=== PATIENT | female | born 1945 | race Two or more races ===

== ENCOUNTER → 2017-05-22 | Outpatient (CLI) | payer OTHER ==
[~2017-05-22] MED LIST: AMOX1TAB12 PO; CATAFLAM50 MG PO; INTESTINEX1 CAP PO; LODINE XL500 MG PO; LOSARTAN POTASS50 MG; NAPR500T14 PO; ORPH100T PO; PRINIVIL10 MG; PROTONIX20 MG PO
== END | disposition home or self-care (01) ==
LOC: TOM 09:05
DX: R10.2 Pelvic and perineal pain (principal)

== ENCOUNTER 2017-06-26 13:36 | Outpatient (CLI) | payer OTHER | END 2017-06-26 13:41 | disposition home or self-care (01) | LOC: MAMO-SONO 13:36 | DX: Z12.31 Encounter for screening mammogram for malignant neoplasm of breast (principal); Z87.898 Personal history of other specified conditions; N64.4 Mastodynia ==

== ENCOUNTER 2017-07-25 10:37 | Outpatient (CLI) | payer OTHER | END 2017-07-25 15:50 | disposition home or self-care (01) | LOC: MRI 10:37 | DX: M25.562 Pain in left knee (principal) | CPT/HCPCS: 73721 ==

== ENCOUNTER 2017-08-13 19:25 | Emergency (ER) | payer OTHER ==
[~2017-08-13] VITALS: Ht 170.2 cm; Wt 113.4 kg
[2017-08-13] MEDS ORDERED: SYNTHROID75 MCG (19:53)
[2017-08-13] MEDS ORDERED: IBUPROFEN800 MG PO (20:21)
== END 2017-08-13 21:04 | disposition home or self-care (01) ==
LOC: ER 19:25
DX: M25.512 Pain in left shoulder (principal)

== ENCOUNTER 2017-11-06 12:30 | Inpatient (IN) | payer OTHER ==
[~2017-11-06] VITALS: Ht 170.2 cm; Wt 113.4 kg
[~2017-11-06 12:30] MED LIST changes: +IBUPROFEN800 MG PO; +SYNTHROID75 MCG
[2017-11-14] MEDS ORDERED: SYNTHROID75 MCG PO (09:47)
[2017-11-14] MEDS ORDERED: LOSARTAN POTASS50 MG PO (09:47)
[2017-11-15] MEDS ORDERED: DUI500 PO (15:27)
[2017-11-15] MEDS ORDERED: PERCOCET 5-3251 EACH PO (15:27)
[2017-11-15] MEDS ORDERED: ELIQUIS2.5 MG PO (15:27)
== END 2017-11-15 16:38 | disposition home or self-care (01) | DRG 470 ==
LOC: O/R 11-13 04:35 → SURG 11-13 04:35 → SURH 11-13 09:45 → SURG 11-13 13:38
PROVIDERS: Orthopaedic Surgery
PROC: 0MNP0ZZ Release Left Knee Bursa and Ligament, Open Approach (ICD-10-PCS; 2017-11-13)
PROC: 0SRD0J9 Replacement of Left Knee Joint with Synthetic Substitute, Cemented, Open Approach (ICD-10-PCS; principal; 2017-11-13 09:45)
DX: M17.12 Unilateral primary osteoarthritis, left knee (principal); D62 Acute posthemorrhagic anemia; M22.12 Recurrent subluxation of patella, left knee; M81.0 Age-related osteoporosis without current pathological fracture; E66.01 Morbid (severe) obesity due to excess calories

== ENCOUNTER 2018-01-10 12:47 | Outpatient (CLI) | payer OTHER ==
[~2018-01-10 12:47] MED LIST changes: +DUI500 PO; +ELIQUIS2.5 MG PO; +LOSARTAN POTASS50 MG PO; +PERCOCET 5-3251 EACH PO; +SYNTHROID75 MCG PO
== END 2018-01-10 13:03 | disposition home or self-care (01) ==
LOC: RAD 12:47
DX: M19.072 Primary osteoarthritis, left ankle and foot (principal); M19.071 Primary osteoarthritis, right ankle and foot

== ENCOUNTER 2018-02-03 12:47 | Emergency (ER) | payer OTHER ==
[~2018-02-03] VITALS: Ht 170.2 cm; Wt 108.9 kg
== END 2018-02-03 14:20 | disposition home or self-care (01) ==
LOC: ER 12:47
DX: S60.371A Other superficial bite of right thumb, initial encounter (principal); L03.011 Cellulitis of right finger; W54.0XXA Bitten by dog, initial encounter; Y93.89 Activity, other specified; Y92.89 Other specified places as the place of occurrence of the external cause; Y99.8 Other external cause status; M54.5 Low back pain

== ENCOUNTER 2018-06-18 14:04 | Outpatient (CLI) | payer OTHER | END 2018-06-18 16:38 | disposition home or self-care (01) | LOC: LAB 14:04 | DX: R10.2 Pelvic and perineal pain (principal); Z51.81 Encounter for therapeutic drug level monitoring ==

== ENCOUNTER 2018-06-18 15:28 | Outpatient (CLI) | payer OTHER | END 2018-06-18 15:41 | disposition home or self-care (01) | LOC: EKG 15:28 | DX: I10 Essential (primary) hypertension (principal) ==

== ENCOUNTER → 2018-06-20 | Outpatient (CLI) | payer OTHER | END | disposition home or self-care (01) | LOC: NUCLEAR 10:00 | DX: R07.89 Other chest pain (principal); I10 Essential (primary) hypertension; I20.9 Angina pectoris, unspecified ==

== ENCOUNTER 2018-06-24 08:12 | Outpatient (CLI) | payer OTHER | END 2018-06-24 08:25 | disposition home or self-care (01) | LOC: MAMO-SONO 08:12 → TOM 08:12 | DX: N64.4 Mastodynia (principal); Z12.31 Encounter for screening mammogram for malignant neoplasm of breast; Z87.898 Personal history of other specified conditions ==

== ENCOUNTER 2018-08-11 15:24 | Emergency (ER) | payer OTHER ==
[~2018-08-11] VITALS: Ht 167.6 cm; Wt 90.7 kg
== END 2018-08-11 20:11 | disposition home or self-care (01) ==
LOC: ER 15:24
DX: M77.31 Calcaneal spur, right foot (principal); R60.0 Localized edema; M25.571 Pain in right ankle and joints of right foot; S91.021 Laceration with foreign body, right ankle; W45.8XXS Other foreign body or object entering through skin, sequela

== ENCOUNTER 2019-01-09 11:57 | Outpatient (CLI) | payer OTHER | END 2019-01-09 12:26 | disposition home or self-care (01) | LOC: RAD 11:57 | DX: M12.861 Other specific arthropathies, not elsewhere classified, right knee (principal); M12.862 Other specific arthropathies, not elsewhere classified, left knee ==

== ENCOUNTER → 2019-01-16 | Outpatient (CLI) | payer OTHER | END | disposition home or self-care (01) | LOC: RAD 12:49 | DX: M12.88 Other specific arthropathies, not elsewhere classified, other specified site (principal) ==

== ENCOUNTER → 2019-01-23 | Outpatient (CLI) | payer OTHER | END | disposition home or self-care (01) | LOC: LAB 12:32 | DX: E53.8 Deficiency of other specified B group vitamins (principal); E55.9 Vitamin D deficiency, unspecified; A53.0 Latent syphilis, unspecified as early or late ==

== ENCOUNTER 2019-02-03 08:56 | Outpatient (CLI) | payer OTHER | END 2019-02-03 15:34 | disposition home or self-care (01) | LOC: TOM 08:56 | DX: M54.5 Low back pain (principal); G31.84 Mild cognitive impairment of uncertain or unknown etiology; M54.2 Cervicalgia; M19.90 Unspecified osteoarthritis, unspecified site; R25.2 Cramp and spasm; M54.6 Pain in thoracic spine ==

== ENCOUNTER 2019-02-17 12:58 | Outpatient (CLI) | payer OTHER | END 2019-02-17 13:01 | disposition home or self-care (01) | LOC: TOM 12:58 | DX: R10.2 Pelvic and perineal pain (principal) ==

== ENCOUNTER 2019-03-23 09:07 | Emergency (ER) | payer OTHER ==
[~2019-03-23] VITALS: Ht 170.2 cm; Wt 100.7 kg
== END 2019-03-23 15:59 | disposition home or self-care (01) ==
LOC: ER 09:07
DX: R20.0 Anesthesia of skin (principal)

== ENCOUNTER 2019-03-27 11:16 | Outpatient (CLI) | payer OTHER | END 2019-03-27 11:20 | disposition home or self-care (01) | LOC: LAB 11:16 | DX: G45.8 Other transient cerebral ischemic attacks and related syndromes (principal) ==

== ENCOUNTER → 2019-04-11 | Outpatient (CLI) | payer OTHER | END | disposition home or self-care (01) | LOC: RAD 04-04 13:14 | DX: G45.8 Other transient cerebral ischemic attacks and related syndromes (principal); I63.89 Other cerebral infarction; I67.89 Other cerebrovascular disease | CPT/HCPCS: 70553; A9575 ==

== ENCOUNTER 2019-11-24 15:15 | Outpatient (CLI) | payer OTHER | END 2019-11-24 15:17 | disposition home or self-care (01) | LOC: RAD 15:15 | PROVIDERS: ATTEND Orthopaedic Surgery | DX: M54.5 Low back pain (principal); M25.551 Pain in right hip; M25.552 Pain in left hip ==

== ENCOUNTER 2020-02-18 10:20 | Outpatient (CLI) | payer OTHER ==
[~2020-02-18 10:20] MED LIST changes: +VOLTAREN ARTHRI20 GM TOP
== END 2020-02-18 10:34 | disposition home or self-care (01) ==
LOC: MAMO-SONO 10:20
PROVIDERS: ATTEND Obstetrics & Gynecology Obstetrics
DX: R92.0 Mammographic microcalcification found on diagnostic imaging of breast (principal); Z12.31 Encounter for screening mammogram for malignant neoplasm of breast; N64.4 Mastodynia

== ENCOUNTER 2020-03-25 08:54 | Outpatient (CLI) | payer OTHER | END 2020-03-25 09:00 | disposition home or self-care (01) | LOC: LAB 08:54 | PROVIDERS: ATTEND Internal Medicine | DX: D50.8 Other iron deficiency anemias (principal) ==

== ENCOUNTER 2020-04-17 17:05 | Emergency (ER) | payer OTHER ==
[~2020-04-17] VITALS: Ht 170.2 cm; Wt 108.9 kg
[2020-04-17] MEDS ORDERED: PLAVIX75 MG (17:24)
== END 2020-04-17 22:31 | disposition home or self-care (01) ==
LOC: ER 17:05
DX: M79.81 Nontraumatic hematoma of soft tissue (principal); R23.3 Spontaneous ecchymoses; Z95.0 Presence of cardiac pacemaker

== ENCOUNTER → 2020-07-05 07:10 | Outpatient (CLI) | payer OTHER ==
[~2020-07-05 07:10] MED LIST changes: +PLAVIX75 MG
== END | disposition home or self-care (01) ==
LOC: NUCLEAR 07:00
PROVIDERS: ATTEND Internal Medicine Cardiovascular Disease
DX: M81.0 Age-related osteoporosis without current pathological fracture (principal)
CPT/HCPCS: 78306; A9503

== ENCOUNTER 2021-05-13 11:44 | Outpatient (CLI) | payer OTHER | END 2021-05-13 11:48 | disposition home or self-care (01) | LOC: TOM 11:44 | PROVIDERS: ATTEND Psychiatry & Neurology Pain Medicine | DX: R41.3 Other amnesia (principal); Z81.8 Family history of other mental and behavioral disorders ==

== ENCOUNTER 2021-06-30 12:46 | Outpatient (CLI) | payer OTHER | END 2021-06-30 12:57 | disposition home or self-care (01) | LOC: TOM 12:46 | PROVIDERS: ATTEND Urology | DX: R10.2 Pelvic and perineal pain (principal) ==

== ENCOUNTER 2022-11-23 09:13 | Outpatient (CLI) | payer OTHER | END 2022-11-23 09:22 | disposition home or self-care (01) | LOC: TOM 09:13 | PROVIDERS: ATTEND Urology | DX: R10.2 Pelvic and perineal pain (principal) ==

== ENCOUNTER 2024-01-23 10:29 | Inpatient (IN) | payer OTHER ==
[~2024-01-23] VITALS: Ht 170.2 cm; Wt 101.6 kg
[2024-01-23] MEDS ORDERED: ELIQUIS2.5 MG (10:55)
[2024-01-23] MEDS ORDERED: VAZALORE81 MG (10:55)
[2024-01-23] MEDS ORDERED: TOPROL XL25 M1 (10:55)
[2024-01-23] MEDS ORDERED: DILTIAZEM HCL 25 MG/5 ML VIAL IV STA ×2 (11:52→13:50)
[2024-01-23] MEDS ORDERED: DILTIAZEM HCL 125 MG in 0.9 % SODIUM CHLORIDE 125 ML IV SCH (12:00)
[2024-01-23 12:15] LABS: HEMATOCRIT 39.4 % (36.0-45.00); MEAN CELL VOLUME 89.3 fL (80.00-100.00); MEAN CORPUSCULAR HEMOGLOBIN 29.5 pg (27.00-32.0); MEAN CORPUSCULAR HGB CONC 33.1 g/dl (32.0-36.0); PLATELET COUNT 188 K/uL (150-450); RED BLOOD COUNT 4.41 M/uL (4.00-6.00)
[2024-01-23 12:45] LABS: INR 1.15; PARTIAL THROMBOPLASTIN TIME 26.9 SECONDS (22.0-34.0); PROTHROMBIN TIME 12.4 SECONDS (9.0-11.5)
[2024-01-23 12:52] LABS: ALBUMIN 3.4 gm/dL (3.4-5.0); BILIRUBIN TOTAL 0.96 mg/dL (0.3-1.2); BILIRUBIN,CONJUGATED 0.32 mg/dL (0.0-0.2); BILIRUBIN,UNCONJUGATED 0.64 mg/dL (0.0-0.6); CREATININE SERUM 0.98 mg/dL (0.55-1.02); GFR 54.89; POTASSIUM 3.36 mEq/L (3.5-5.1)
[2024-01-23] MEDS ORDERED: AMIODARONE HCL 50 MG/ML AMPUL IV ONE (18:15)
[2024-01-23] MEDS ORDERED: APIXABAN 5 MG TABLET PO SCH (18:18)
[2024-01-23] MEDS ORDERED: ACETAMINOPHEN 500 MG GEL..CAP PO PRN (18:30)
[2024-01-23 19:14] LABS: URINE APPEARANCE Clear; URINE BILIRRUBIN Negative (NEGATIVE); URINE BLOOD Negative; URINE COLOR Yellow; URINE KETONE 15 (NEGATIVE); URINE LEUKOCYTE Negative; URINE NITRATE Negative; URINE PROTEIN Trace (NEGATIVE)
[2024-01-23 19:18] LABS: URINE BACTERIA 16.3 uL (0.0-1933); URINE EPITHELIAL CELLS 2.1 uL (0.0-38.8); URINE RBC 17.5 uL (0.0-20.8)
[2024-01-23 19:20] LABS: URINE CAST 0.45 uL (0.0-1.40); URINE GLUCOSE >=1000 MG/DL (NEGATIVE)
[2024-01-23 20:28] VITALS: BP 76/64; O2SAT 96
[2024-01-23 20:50] LABS: ABG PH 7.438 (7.35-7.45); ABG PO2 78.3 mmHg (80-100); ABG pCO2 35.6 mmHg (35-45); BASE EXCESS -0.1 mmol/l; BICARBONATE 23.5 mmol/l (23-25); SaO2 95.9 %; Tco2 24.6 mmol/l; o2 32 %
[2024-01-23 20:51] LABS: allen test SATISFACTORY; puncture site RADIAL RIGHT
[2024-01-23] MEDS ORDERED: FUROsemide 20 MG/2 ML VIAL IV SCH (21:00)
[2024-01-23] MEDS ORDERED: POTASSIUM CHLORIDE 20MEQ/100ML H2O PB IV ONE (21:30)
[2024-01-23 21:58] VITALS: BP 116/77
[2024-01-23 23:24] VITALS: BP 116/82; O2SAT 99
[2024-01-24] VITALS (15 sets, daily range): BP systolic 70–133; BP diastolic 61–83; O2SAT 95–100
[2024-01-24] MEDS ORDERED: LEVOTHYROXINE SODIUM 75 MCG TABLET PO SCH (06:00)
[2024-01-24] MEDS ORDERED: FUROsemide 20 MG/2 ML VIAL IV SCH (09:00)
[2024-01-24] MEDS ORDERED: FAMOTIDINE/PF 20 MG in 0.9 % SODIUM CHLORIDE 8 ML IV PUSH SCH (09:00)
[2024-01-24] MEDS ORDERED: ATORVASTATIN CALCIUM 40 MG TABLET PO SCH (09:00)
[2024-01-24] MEDS ORDERED: METOPROLOL SUCCINATE 25 MG TAB.SR.24H PO STA ×2 (15:24→16:36)
[2024-01-24] MEDS ORDERED: DIGOXIN 0.25 MG/ML AMPUL IV SCH (21:36)
[2024-01-24] MEDS ORDERED: POTASSIUM CHLORIDE 10 MEQ CAPSULE PO SCH (21:38)
[2024-01-25] VITALS (12 sets, daily range): BP systolic 92–127; BP diastolic 60–90; O2SAT 96–100
[2024-01-25] MEDS ORDERED: METOPROLOL TARTRATE 25 MG TABLET PO SCH (05:00)
[2024-01-25 06:17] LABS: HEMATOCRIT 37.5 % (36.0-45.00); HEMOGLOBIN 12.4 g/dL (12.0-15.00); MEAN CELL VOLUME 89.8 fL (80.00-100.00); MEAN CORPUSCULAR HEMOGLOBIN 29.6 pg (27.00-32.0); PLATELET COUNT 192 K/uL (150-450); RED BLOOD COUNT 4.17 M/uL (4.00-6.00); RED CELL DISTRIBUTION WIDTH 16.6 % (11.5-14.5)
[2024-01-25 06:46] LABS: ALBUMIN 3.1 gm/dL (3.4-5.0); BILIRUBIN TOTAL 0.53 mg/dL (0.3-1.2); CALCIUM 8.9 mg/dL (8.5-10.1); CREATININE SERUM 0.86 mg/dL (0.55-1.02); GFR 63.82; GLOBULINA 4.2 G/DL (2.4-3.5); MAGNESIUM 1.7 mg/dL (1.8-2.4); PHOSPHOROUS 4.3 mg/dL (2.5-4.9); POTASSIUM 4.44 mEq/L (3.5-5.1); TOTAL PROTEIN 7.3 gm/dL (6.4-8.2)
[2024-01-25] MEDS ORDERED: METOPROLOL TARTRATE 50 MG TABLET PO SCH (21:00)
[2024-01-26] VITALS (18 sets, daily range): BP systolic 91–120; BP diastolic 67–91; O2SAT 95–100
[2024-01-26] MEDS ORDERED: METOPROLOL TARTRATE 50 MG TABLET PO SCH (05:00)
[2024-01-26] MEDS ORDERED: ASPIRIN 81 MG TAB.CHEW PO SCH (09:00)
[2024-01-26] MEDS ORDERED: LOSARTAN POTASSIUM 50 MG TABLET PO SCH (09:00)
[2024-01-26] MEDS ORDERED: METOPROLOL SUCCINATE 25 MG TAB.SR.24H PO SCH (09:00)
[2024-01-26] MEDS ORDERED: MAGNESIUM SULFATE IN WATER 50 ML IV ONE (10:45)
[2024-01-26] MEDS ORDERED: METOPROLOL TARTRATE 50 MG,METOPROLOL TARTRATE 25 MG PO SCH (13:00)
[2024-01-26] MEDS ORDERED: POTASSIUM CHLORIDE 10 MEQ CAPSULE PO SCH (17:00)
[2024-01-26] MEDS ORDERED: DIGOXIN 0.125 MG TABLET PO SCH (17:00)
[2024-01-26] MEDS ORDERED: AMIODARONE HCL 50 MG/ML AMPUL IV ONE (19:15)
[2024-01-26] MEDS ORDERED: METOPROLOL TARTRATE 50 MG TABLET PO ONE (19:30)
[2024-01-27] VITALS (14 sets, daily range): BP systolic 102–226; BP diastolic 69–95; O2SAT 94–99
[2024-01-27] MEDS ORDERED: METOPROLOL TARTRATE 50 MG,METOPROLOL TARTRATE 25 MG PO SCH (02:00)
[2024-01-27 05:48] LABS: HEMATOCRIT 43.3 % (36.0-45.00); HEMOGLOBIN 14.1 g/dL (12.0-15.00); MEAN CELL VOLUME 89.5 fL (80.00-100.00); MEAN CORPUSCULAR HEMOGLOBIN 29.1 pg (27.00-32.0); MEAN CORPUSCULAR HGB CONC 32.5 g/dl (32.0-36.0); PLATELET COUNT 225 K/uL (150-450); RED BLOOD COUNT 4.84 M/uL (4.00-6.00); RED CELL DISTRIBUTION WIDTH 16.2 % (11.5-14.5)
[2024-01-27 06:16] LABS: ALBUMIN 3.1 gm/dL (3.4-5.0); BILIRUBIN TOTAL 0.78 mg/dL (0.3-1.2); CALCIUM 9.2 mg/dL (8.5-10.1); CREATININE SERUM 0.87 mg/dL (0.55-1.02); GFR 62.97; GLOBULINA 5.1 G/DL (2.4-3.5); POTASSIUM 3.75 mEq/L (3.5-5.1); TOTAL PROTEIN 8.2 gm/dL (6.4-8.2)
[2024-01-28] VITALS (8 sets, daily range): BP systolic 97–122; BP diastolic 59–85; O2SAT 95–98
[2024-01-28] MEDS ORDERED: AMIODARONE HCL 200 MG TABLET PO SCH (09:40)
[2024-01-28 11:32] LABS: ALBUMIN 2.9 gm/dL (3.4-5.0); BILIRUBIN TOTAL 0.66 mg/dL (0.3-1.2); CALCIUM 8.7 mg/dL (8.5-10.1); CREATININE SERUM 1.01 mg/dL (0.55-1.02); GFR 53.01; GLOBULINA 5.3 G/DL (2.4-3.5); POTASSIUM 3.91 mEq/L (3.5-5.1); TOTAL PROTEIN 8.2 gm/dL (6.4-8.2)
[2024-01-28] MEDS ORDERED: METOPROLOL TARTRATE 100 MG TABLET PO SCH (13:00)
[2024-01-28] MEDS ORDERED: BENZONATATE 200 MG CAPSULE PO SCH (17:06)
[2024-01-28] MEDS ORDERED: GUAIFENESIN/DEXTROMETHORPHAN 10ML BLIST.PACK PO SCH (18:00)
[2024-01-29] VITALS: BP 106/69; O2SAT 96
[2024-01-29 07:29] LABS: ALBUMIN 3.1 gm/dL (3.4-5.0); BILIRUBIN TOTAL 0.6 mg/dL (0.3-1.2); CALCIUM 8.8 mg/dL (8.5-10.1); CREATININE SERUM 1.12 mg/dL (0.55-1.02); GFR 47.05; GLOBULINA 4.7 G/DL (2.4-3.5); PHOSPHOROUS 4.4 mg/dL (2.5-4.9); POTASSIUM 4.23 mEq/L (3.5-5.1); TOTAL PROTEIN 7.8 gm/dL (6.4-8.2)
[2024-01-29 07:38] LABS: HEMATOCRIT 44.3 % (36.0-45.00); HEMOGLOBIN 14.9 g/dL (12.0-15.00); MEAN CELL VOLUME 87.3 fL (80.00-100.00); MEAN CORPUSCULAR HEMOGLOBIN 29.3 pg (27.00-32.0); MEAN CORPUSCULAR HGB CONC 33.6 g/dl (32.0-36.0); PLATELET COUNT 223 K/uL (150-450); RED BLOOD COUNT 5.08 M/uL (4.00-6.00)
[2024-01-29 09:14] VITALS: BP 114/75; O2SAT 96
[2024-01-29] MEDS ORDERED: OSELTAMIVIR PHOSPHATE 75 MG CAPSULE PO SCH (12:02)
[2024-01-29] MEDS ORDERED: SODIUM CHLORIDE 0.45 % 1,000 ML IV SCH (13:30)
[2024-01-29] MEDS ORDERED: 0.9 % SODIUM CHLORIDE 1,000 ML IV SCH (15:15)
[2024-01-29 16:55] VITALS: BP 121/68; O2SAT 98
[2024-01-30] VITALS: BP 99/75; O2SAT 97
[2024-01-30 06:52] LABS: HEMATOCRIT 40.8 % (36.0-45.00); HEMOGLOBIN 13.8 g/dL (12.0-15.00); MEAN CELL VOLUME 87.2 fL (80.00-100.00); MEAN CORPUSCULAR HEMOGLOBIN 29.5 pg (27.00-32.0); MEAN CORPUSCULAR HGB CONC 33.9 g/dl (32.0-36.0); PLATELET COUNT 203 K/uL (150-450); RED BLOOD COUNT 4.68 M/uL (4.00-6.00); RED CELL DISTRIBUTION WIDTH 15.8 % (11.5-14.5)
[2024-01-30 07:14] LABS: ALBUMIN 2.9 gm/dL (3.4-5.0); BILIRUBIN TOTAL 0.46 mg/dL (0.3-1.2); CALCIUM 8.4 mg/dL (8.5-10.1); CREATININE SERUM 1.07 mg/dL (0.55-1.02); GFR 49.59; GLOBULINA 4.2 G/DL (2.4-3.5); MAGNESIUM 1.9 mg/dL (1.8-2.4); PHOSPHOROUS 3.5 mg/dL (2.5-4.9); POTASSIUM 3.91 mEq/L (3.5-5.1); TOTAL PROTEIN 7.1 gm/dL (6.4-8.2)
[2024-01-30 07:17] LABS: C-REACTIVE PROTEIN 0.76 MG/DL (0.00-0.29)
[2024-01-30 08:00] VITALS: BP 102/75; O2SAT 99
[2024-01-30 16:00] VITALS: BP 104/73; O2SAT 95
[2024-01-31] VITALS: BP 112/73; O2SAT 96
[2024-01-31 07:20] LABS: HEMATOCRIT 40.9 % (36.0-45.00); HEMOGLOBIN 13.6 g/dL (12.0-15.00); MEAN CELL VOLUME 88.3 fL (80.00-100.00); MEAN CORPUSCULAR HEMOGLOBIN 29.3 pg (27.00-32.0); MEAN CORPUSCULAR HGB CONC 33.1 g/dl (32.0-36.0); PLATELET COUNT 210 K/uL (150-450); RED BLOOD COUNT 4.63 M/uL (4.00-6.00); RED CELL DISTRIBUTION WIDTH 15.7 % (11.5-14.5)
[2024-01-31 08:17] LABS: ALBUMIN 2.9 gm/dL (3.4-5.0); BILIRUBIN TOTAL 0.6 mg/dL (0.3-1.2); CALCIUM 8.5 mg/dL (8.5-10.1); CREATININE SERUM 0.85 mg/dL (0.55-1.02); GFR 64.68; GLOBULINA 4.2 G/DL (2.4-3.5); MAGNESIUM 1.8 mg/dL (1.8-2.4); PHOSPHOROUS 2.4 mg/dL (2.5-4.9); POTASSIUM 4.02 mEq/L (3.5-5.1); TOTAL PROTEIN 7.1 gm/dL (6.4-8.2)
[2024-01-31 16:29] VITALS: BP 116/73; O2SAT 97
[2024-01-31] MEDS ORDERED: OSEL75CA PO (18:41)
[2024-01-31] MEDS ORDERED: AMIODARONE HCL200 MG PO (18:41)
[2024-01-31] MEDS ORDERED: METOPROLOL TAR100 MG PO (18:42)
[2024-01-31] MEDS ORDERED: LANOXIN125 MCG PO (18:42)
== END 2024-01-31 21:41 | disposition home or self-care (01) | DRG 291 ==
LOC: ER 10:29 → ICU-2 18:35 → SEC-K 01-27 22:43 → MEDJ 01-27 23:51 → SEC-K 01-28 00:56 → SURG 01-28 13:41 → SURH 01-29 08:34
PROVIDERS: General Practice; Internal Medicine; Internal Medicine Infectious Disease; ADMIT Internal Medicine; ATTEND Internal Medicine
PROC: B246ZZZ Ultrasonography of Right and Left Heart (ICD-10-PCS; principal; 2024-01-23)
PROC: 4A12X4Z Monitoring of Cardiac Electrical Activity, External Approach (ICD-10-PCS; 2024-01-29)
DX: I11.0 Hypertensive heart disease with heart failure (principal); I50.33 Acute on chronic diastolic (congestive) heart failure; I48.20 Chronic atrial fibrillation, unspecified; J90 Pleural effusion, not elsewhere classified; E66.01 Morbid (severe) obesity due to excess calories; E11.9 Type 2 diabetes mellitus without complications; E03.8 Other specified hypothyroidism; I34.0 Nonrheumatic mitral (valve) insufficiency; Z79.4 Long term (current) use of insulin